=== PATIENT | female | born 1935 | race Caucasian/White ===

== ENCOUNTER 2024-05-17 15:13 | Emergency (ER) | payer MEDICARE, BC, SELFPAY ==
[2024-05-17 15:59] VITALS: BP 152/77; PULSE 67; RESP 19; TEMP 36.7; O2SAT 98; BMI 29.2
--- NOTE | 2024-05-17 16:19 | PD.EDUPEX ---
Upper Extremity Injury RME/HPI General Chief Complaint: Extremity Injury, Upper Stated Complaint: GLF, POSSIBLE FX RIGHT WRIST FX Time Seen by Provider: 05/17/24 15:31 Arrival date/time: 05/17/24 15:13 RME / HPI RME / HPI narrative: 88-year-old female patient was brought in by family for evaluation regarding right wrist pain. Patient sustained a ground-level fall landing on her right wrist, resulting to pain, went to PCP, outpatient x-ray was done and was advised to come to the emergency room for possible fracture of the right wrist. Patient denies any head injury. Denies any other complaints patient is ambulatory. Incident happened earlier today. Related Data Home Medications ?Medication ?Instructions ?Recorded ?Confirmed B-complex with vitamin C 1 tab PO QDAY 05/10/20 05/10/20 atorvastatin 10 mg tablet 10 mg PO QDAY 05/10/20 05/10/20 cranberry extract 650 mg capsule 650 mg PO QDAY 05/10/20 05/10/20 diltiazem HCl 240 mg 240 mg PO QAM 05/10/20 05/10/20 capsule,extended release 24 hr (Cartia XT) ezetimibe 10 mg tablet 10 mg PO QDAY 05/10/20 05/10/20 levothyroxine 100 mcg capsule 100 mcg PO QDAY 05/10/20 05/10/20 propafenone 225 mg 225 mg PO Q12H 05/10/20 05/10/20 capsule,extended release 12 hr vitamin B comp no.3-folic acid 1 1 tab PO QDAY 05/10/20 05/10/20 mg-vit C 60 mg-biotin 300 mcg tablet ([facility]) Previous Rx's ?Medication ?Instructions ?Recorded levofloxacin 750 mg tablet 750 mg PO QDAY #7 tabs 05/10/20 Allergies Allergy/AdvReac Type Severity Reaction Status Date / Time No Known Allergies Allergy Verified 12/15/19 13:15 Review of Systems Review of Systems Narrative Review of Systems: Review of system reviewed and within normal limits except mentioned in HPI ED Exam Narrative Physical exam: VITAL SIGNS: Reviewed. GENERAL APPEARANCE: Alert and interactive, follows commands, no acute distress, HEAD AND FACE: Non-traumatic. ENT: PERRL, pink conjunctivitis, eyelid no trauma, Mucous membrane moist. NECK: Supple, nontender, no nuchal rigidity. RECTAL: Deferred. GENITAL: Deferred. NEUROLOGICAL: Gross motor function intact sensory function intact, Appropriate for age. MUSCULOSKELETAL: low back nontender, full range of motion. EXTREMITIES: Right wrist tenderness, mild swelling no deformity, full range of motion. Negative tenderness to the snuffbox area SKIN: Color pink, dry, no rash, no lacerations, no abrasions, no contusions. LYMPHATICS: Deferred. Course Quality Measures none Orders Category Date Time Status splint [Splint / Immobilizer] STAT Care 05/17/24 16:18 Active Vital Signs Vital signs: Vital Signs Temperature 98.1 F 05/17/24 15:59 Pulse Rate 67 05/17/24 15:59 Respiratory Rate 19 05/17/24 15:59 Blood Pressure 152/77 H 05/17/24 15:59 Pulse Oximetry (%) 98 05/17/24 15:59 Oxygen Delivery Method Room Air 05/17/24 15:59 Extremity Injury MDM Narrative MDM Narrative:: X-ray of the wrist was reviewed by me and I did not notice any fracture or dislocation noted. Patient was placed on the cock up . distal neurovascular status intact post splinting. Patient data External records reviewed:: None Clinical information provided by:: none Social determinants that could affect healthcare access:: none Patient has the following chronic illnesses:: None How is presenting disease/condition affected by chronic disease/condition?: exacerbated by Evaluation data The following diagnostics were reviewed and interpreted by me:: radiology exam(s) Lab and/or radiology exams considered but not ordered:: None Interpretation Summary: X-ray of the wrist came back unremarkable. No fracture dislocation as read by radiologist Medications / Prescriptions Medications or Prescriptions considered but not ordered:: None Medication administrations:: None Consultations Consultation(s) initiated? (list below): No Diagnosis Upper Extremity Injury Differential Diagnosis: fracture of wrist, Colles' fracture and other (wrist sprain) Most likely diagnosis given after review of the tests above:: Wrist sprain, fall Admission Indicated Admission indicated?: not indicated Explain why admission is indicated or not indicated:: Stable for discharge Admission Request Was there a request for admission?: No Disposition Plan Disposition Plan: Discharge Discharge Attestation Discharge Attestation: The patient was given an opportunity to ask questions and understood the discharge instructions. Discharge instructions specifically effects, indications for sooner follow up or return to the emergency department, and the expected course of current diagnosis. Patient condition: Stable Discharge Plan Plan Patient Disposition: HOME (Self Care) Disposition Comment: stable Prescriptions/Referrals Prescriptions/Med Rec: No Action atorvastatin 10 mg Tablet 10 mg PO QDAY diltiazem HCl [Cartia XT] 240 mg Capsule,Extended Release 24hr 240 mg PO QAM B-complex with vitamin C [Nephro-Deandre] Tablet 1 tab PO QDAY ezetimibe 10 mg Tablet 10 mg PO QDAY propafenone 225 mg Capsule,Extended Release 12 Hr 225 mg PO Q12H [facility] Rx 1-60-300 mg-mg-mcg Tablet 1 tab PO QDAY levothyroxine 100 mcg Capsule 100 mcg PO QDAY cranberry extract 650 mg Capsule 650 mg PO QDAY levofloxacin 750 mg tablet 750 mg PO QDAY Qty: 7 0RF Problem List Clinical Impression: Sprain and strain of wrist, Fall Patient/Caregiver Discharge Instructions Discharge Activity: activity as tolerated Education Materials: Preventing Falls: Staying Active Additional Instructions: Thank you for the opportunity for serving you today. You are stable for discharged . You are advised to: Follow-up with Dr. Rodriguez in 1 to 2 days Return to ED for worsening of symptoms Increase oral fluids Take your pain medication as needed Wear your splint for the next 4 weeks or until seen by Dr. Rodriguez Print Language: Luxembourger Stand Alone Forms: Lissette Award Info., Patient Portal Info Letter PA/ARI Supervising Physician CRUZ/ARI Supervising Physician: MD Madelaine
--- NOTE | 2024-05-17 19:04 | PC.NURSE ---
no answer at er lobby or outside er to be discharge.
== END 2024-05-17 19:05 | disposition home or self-care (01) ==
PROVIDERS: Emergency Provider Emergency Medicine; PCP Internal Medicine
DX: S63.501A Unspecified sprain of right wrist, initial encounter (principal); S66.911A Strain of unspecified muscle, fascia and tendon at wrist and hand level, right hand, initial encounter; W18.30XA Fall on same level, unspecified, initial encounter
CPT/HCPCS: 73110; 99283

== ENCOUNTER → 2024-05-29 | Outpatient (CLI) | payer MEDICARE, BC, SELFPAY ==
--- NOTE | 2024-05-29 10:32 | XR_ITS ---
Examination: CT right wrist, without contrast. 2-D sagittal reconstructions. 2-D coronal reconstructions. 3-D reconstructions. Date and time of exam:May 29, 2024 1047 hours INDICATIONS: Patient fell last week with injury to the wrist, wrist pain CTDI: vol (mGy):4.60 DLP: (mGycm):96.9 Technique: Multiple 1.25 mm axial sections of the left wrist without intravenous contrast have been obtained. 2-D sagittal and coronal reconstructions have been obtained. 3-D reconstructions have been obtained. Low dose protocols were performed. One or more of the following dose reduction techniques were used; automated exposure control, adjustment of the mA and/or KV according to patient size, use of iterative reconstruction technique. Findings: Severe osteopenia Nondisplaced acute fractures distal radial metaphysis, axial image 33 Ulna intact Navicular lunate hamate remaining carpal bones intact No carpal metacarpal dislocation IMPRESSION: Acute nondisplaced fractures distal radial metaphysis
--- NOTE | 2024-05-29 10:32 | XR_ITS ---
Examination: CT right hand, without contrast. 2-D sagittal reconstructions. 2-D coronal reconstructions. 3-D reconstructions. Date and time of exam:May 29, 2024 1042 hours INDICATIONS: Patient fell last week with injury to the hand, hand pain CTDI: vol (mGy):4.50 DLP: (mGycm):115 Technique: Multiple 1.25 mm axial sections of the left hand have been obtained. 2-D sagittal and coronal reconstructions have been obtained. 3-D reconstructions have been obtained. Low dose protocols were performed. One or more of the following dose reduction techniques were used; automated exposure control, adjustment of the mA and/or KV according to patient size, use of iterative reconstruction technique. Findings: Nondisplaced acute fractures distal radial metaphysis, for instance axial image 110 Carpal bones intact No carpometacarpal dislocations Metacarpals and Severe osteopenia IMPRESSION: Acute nondisplaced fractures distal radial metaphysis Metacarpals and digits appear intact
== END | disposition home or self-care (01) ==
LOC: CCTX 10:27
PROVIDERS: PCP Internal Medicine; Referring Provider Orthopaedic Surgery; Visit Provider Orthopaedic Surgery
DX: S52.91XA Unspecified fracture of right forearm, initial encounter for closed fracture (principal); W19.XXXA Unspecified fall, initial encounter
CPT/HCPCS: 73200

== ENCOUNTER → 2024-06-15 | Outpatient (CLI) | payer MEDICARE, BC, SELFPAY ==
[2024-06-15 11:10] LABS: Collection Type, Urine Clean Catch
[2024-06-15 11:42] LABS: Basophils # (Auto) 0.1 Thou/mm3 (0.0-0.2); Basophils % (Auto) 1 % (0-2.5); Eosinophils # (Auto) 0.1 Thou/mm3 (0.0-0.5); Eosinophils % (Auto) 2 % (0-10); Hematocrit 36.2 % (36.0-46.0); Hemoglobin 11.9 g/dL (12.0-16.0); Immature Granulocytes % (Auto) 0 % (0-0); Immature Granulocytes Auto 0.01 Thou/mm3 (0.00-0.00); Lymphocytes # (Auto) 1.5 Thou/mm3 (1.0-4.8); Lymphocytes % (Auto) 30 % (10-50); Mean Corpuscular HGB Conc 32.9 g/dl (31.0-37.0); Mean Corpuscular Hemoglobin 32.3 pg (25.0-35.0); Mean Corpuscular Volume 98 fL (80-100); Monocytes # (Auto) 0.6 Thou/mm3 (0.0-0.8); Monocytes % (Auto) 12 % (0-12); Neutrophils # (Auto) 2.7 Thou/mm3 (1.8-7.7); Neutrophils % (Auto) 55 % (37-80); Nucleated Red Blood Cell % 0 /100 WBC (0); Platelet Count 168 Thou/mm3 (140-440); RDW Standard Deviation 51.2 fL (36.4-46.3); Red Blood Count 3.68 Miln/mm3 (4.00-5.20); White Blood Count 4.9 Thou/mm3 (3.6-11.0)
[2024-06-15 11:44] LABS: Bilirubin,Urine Negative (Negative); Blood,Urine Negative (Negative); Clarity,Urine Clear (Clear/Hazy); Color,Urine Lt-Yellow (Lt Yel-Yel); Glucose, Urine Negative (Negative); Ketones,Urine Negative (Negative); Leukocyte Esterase,Urine Positive (Negative); Nitrite,Urine Negative (Negative); Protein,Urine Negative (Neg - Trace); RBC,Urine 4 /hpf (0-3); Specific Gravity,Urine 1.017 (1.001-1.035); Squamous Epithelial Cell,Urine 1 /hpf (0-5); Urobilinogen,Urine Negative mg/dL (0.0-1.0); WBC,Urine 2 /hpf (0-5)
[2024-06-15 12:20] LABS: Alanine Aminotransferase 11 U/L (10-49); Albumin, Serum 4.3 gm/dL (3.4-4.8); Albumin/Globulin Ratio 1.9 (1.2-2.2); Alkaline Phosphatase 62 U/L (46-116); Anion Gap 7 (7-16); Aspartate Amino Transferase 19 U/L (0-34); BUN/Creatinine Ratio 22 Ratio (12-20); Bilirubin,Total 0.6 mg/dL (0.3-1.2); Blood Urea Nitrogen 22 mg/dL (9-23); Carbon Dioxide 27.8 mMol/L (20.0-31.0); Cardiac Risk Estimate 3.1 RATIO (3.7-5.6); Chloride 104 mMol/L (98-107); Cholesterol 182 mg/dL (132-200); Globulin 2.3 gm/dL (2.3-3.5); Glucose 96 mg/dL (74-106); HDL Cholesterol 59 mg/dL (40-60); LDL Cholesterol,Calculated 110 mg/dL (0-130); Osmolality,Calculated 280 (275-295); Potassium 4.4 mMol/L (3.4-5.1); Sodium 139 mMol/L (136-145); Thyroid Stimulating Hormone 1.76 uIU/mL (0.55-4.78); Total Protein 6.6 gm/dL (5.7-8.2); Triglycerides 64 mg/dL (30-150); eGFR 55 See Note
== END | disposition home or self-care (01) ==
LOC: COPL 10:04
PROVIDERS: PCP Internal Medicine; Referring Provider Internal Medicine; Visit Provider Internal Medicine
DX: I10 Essential (primary) hypertension (principal); E78.5 Hyperlipidemia, unspecified; E03.9 Hypothyroidism, unspecified
CPT/HCPCS: 36415; 80053; 80061; 81001; 84443; 85025

== ENCOUNTER → 2024-07-12 | Outpatient (CLI) | payer MEDICARE, BC, SELFPAY ==
[2024-07-12 10:48] LABS: OBS Card Expiration Date 2026-09; OBS Card Lot # 23001; OBS Performed By LAB; OBS QC OK? Yes
[2024-07-12 13:37] LABS: Occult Blood, Stool Negative (Negative); Occult Blood, Stool #2 Negative (Negative); Occult Blood, Stool #3 Negative (Negative)
[2024-07-12 13:38] LABS: OBS Developer Lot # 23003
== END | disposition home or self-care (01) ==
LOC: COPL 10:40
PROVIDERS: PCP Internal Medicine; Referring Provider Internal Medicine; Visit Provider Internal Medicine
DX: Z12.11 Encounter for screening for malignant neoplasm of colon (principal)
CPT/HCPCS: 82270

== ENCOUNTER → 2024-07-20 | Outpatient (CLI) | payer MEDICARE, BC, SELFPAY ==
--- NOTE | 2024-07-20 12:20 | XR_ITS ---
Examination: Bone densitometry Date and time of exam:July 20, 2024 1228 hours INDICATIONS: Hysterectomy age 44, postmenopausal right hip fracture 2014 wrist fracture May 2024 levothyroxine 42 years Technique: Lumbar spine and hip total bone mineralization values of an calculated. Peak reference and age match control results have been displayed. Findings: Lumbar spine total bone mineralization is1.155 gm/cm2. This is 1.0 standard deviations above peak reference. This is 3.9 standard deviations above age-matched controls. Hip total bone mineralization is 0.817 gm/cm2 This is 1.0 standard deviations below peak reference. This is 1.3 standard deviations above age-matched controls Impression: There is normal mineralization based on lumbar spine measurements. There is osteopenia based on hip measurements Lumbar mineralization is increase 0.8% compared with October 13, 2021 Hip mineralization is decreased 2.7% compared with October 13, 2021
== END | disposition home or self-care (01) ==
PROVIDERS: PCP Internal Medicine; Referring Provider Internal Medicine; Visit Provider Internal Medicine
DX: M85.89 Other specified disorders of bone density and structure, multiple sites (principal)
CPT/HCPCS: 77080

== ENCOUNTER → 2024-08-06 | Outpatient (CLI) | payer MEDICARE, BC, SELFPAY ==
--- NOTE | 2024-08-06 10:16 | XR_ITS ---
Examination: Shoulder,right, 4 views Technique: Shoulder AP internal rotation, AP external rotation, Y view shoulder, axial 4 views Exam date and time :Every 2024 1023 hours INDICATIONS: Patient fell June 01, 2024 with injury to the shoulder, shoulder pain. FINDINGS: Severe osteopenia No shoulder fracture or dislocation Advanced osteoarthritis and narrowing glenohumeral joint IMPRESSION: Advanced osteoarthritis and narrowing glenohumeral joint
== END | disposition home or self-care (01) ==
LOC: CDIM 09:53
PROVIDERS: PCP Internal Medicine; Referring Provider Orthopaedic Surgery; Visit Provider Orthopaedic Surgery
DX: M19.011 Primary osteoarthritis, right shoulder (principal); M25.811 Other specified joint disorders, right shoulder
CPT/HCPCS: 73030

== ENCOUNTER → 2024-11-02 | Outpatient (CLI) | payer MEDICARE, BC, SELFPAY ==
[2024-11-02 11:42] LABS: Basophils # (Auto) 0.1 Thou/mm3 (0.0-0.2); Basophils % (Auto) 1 % (0-2.5); Eosinophils # (Auto) 0.1 Thou/mm3 (0.0-0.5); Eosinophils % (Auto) 3 % (0-10); Hemoglobin 12.3 g/dL (12.0-16.0); Immature Granulocytes % (Auto) 0 % (0-0); Immature Granulocytes Auto 0.01 Thou/mm3 (0.00-0.00); Lymphocytes # (Auto) 1.6 Thou/mm3 (1.0-4.8); Lymphocytes % (Auto) 28 % (10-50); Mean Corpuscular HGB Conc 33.2 g/dl (31.0-37.0); Mean Corpuscular Hemoglobin 32.2 pg (25.0-35.0); Mean Corpuscular Volume 97 fL (80-100); Monocytes # (Auto) 0.7 Thou/mm3 (0.0-0.8); Monocytes % (Auto) 12 % (0-12); Neutrophils # (Auto) 3.1 Thou/mm3 (1.8-7.7); Neutrophils % (Auto) 56 % (37-80); Nucleated Red Blood Cell % 0 /100 WBC (0); Platelet Count 179 Thou/mm3 (140-440); RDW Standard Deviation 50.7 fL (36.4-46.3); Red Blood Count 3.82 Miln/mm3 (4.00-5.20); White Blood Count 5.6 Thou/mm3 (3.6-11.0)
[2024-11-02 11:49] LABS: Parathyroid Hormone Intact 49.3 pg/ml (18.5-88.0)
[2024-11-02 11:52] LABS: Albumin, Serum 4.2 gm/dL (3.4-4.8); Anion Gap 9 (7-16); BUN/Creatinine Ratio 25 Ratio (12-20); Blood Urea Nitrogen 27 mg/dL (9-23); Calcium 8.9 mg/dL (8.3-10.6); Calcium (Corrected) 8.9 mg/dL (8.5-10.1); Carbon Dioxide 29.8 mMol/L (20.0-31.0); Chloride 106 mMol/L (98-107); Creatinine (Component) 1.1 mg/dL (0.6-1.3); Glucose 104 mg/dL (74-106); Osmolality,Calculated 293 (275-295); Phosphorous 3.7 mg/dL (2.4-5.1); Potassium 4.3 mMol/L (3.4-5.1); Sodium 145 mMol/L (136-145); Thyroid Stimulating Hormone 1.48 uIU/mL (0.55-4.78); eGFR 49 See Note
== END | disposition home or self-care (01) ==
LOC: COPL 10:42
PROVIDERS: PCP Internal Medicine; Referring Provider Internal Medicine; Visit Provider Internal Medicine
DX: I12.9 Hypertensive chronic kidney disease with stage 1 through stage 4 chronic kidney disease, or unspecified chronic kidney disease (principal); N18.30 Chronic kidney disease, stage 3 unspecified; E03.9 Hypothyroidism, unspecified
CPT/HCPCS: 36415; 80069; 83970; 84443; 85025

== ENCOUNTER → 2024-12-13 | Outpatient (CLI) | payer MEDICARE, BC, SELFPAY ==
[2024-12-13 15:25] LABS: Collection Type, Urine Clean Catch
[2024-12-13 16:39] LABS: Bacteria,Urine Rare; Bilirubin,Urine Negative (Negative); Blood,Urine Negative (Negative); Clarity,Urine Clear (Clear/Hazy); Color,Urine Yellow (Lt Yel-Yel); Culture Indicated,Urine Not Indicated; Glucose, Urine Negative (Negative); Hyaline Casts,Urine 1 /hpf (0-1); Ketones,Urine Negative (Negative); Leukocyte Esterase,Urine Positive (Negative); Nitrite,Urine Negative (Negative); PH,Urine 5.5 (5.0-7.0); Protein,Urine Negative (Neg - Trace); RBC,Urine 5 /hpf (0-3); Specific Gravity,Urine 1.027 (1.001-1.035); Squamous Epithelial Cell,Urine 2 /hpf (0-5); Urobilinogen,Urine Negative mg/dL (0.0-1.0); WBC,Urine 3 /hpf (0-5)
== END | disposition home or self-care (01) ==
PROVIDERS: PCP Internal Medicine; Referring Provider Internal Medicine; Visit Provider Internal Medicine
DX: N39.0 Urinary tract infection, site not specified (principal)
CPT/HCPCS: 81001

== ENCOUNTER → 2025-01-24 | Outpatient (CLI) | payer MEDICARE, BC, SELFPAY ==
--- NOTE | 2025-01-24 13:46 | XR_ITS ---
Examination: Duplex scan of the lower extremity, unilateral left complete Date and time of exam: January 24, 2025 1422 hours INDICATIONS: Left leg swelling beginning 2 weeks ago post dog bite Technique: Duplex scan of the extremity veins using B-mode/grayscale imaging and Doppler spectral analysis and color flow Attention is directed to internal echogenicity, compression and augmentation involving these veins, color flow assessment, spectral analysis Findings: Major deep venous structures in the extremity demonstrate normal course and caliber. There is no evidence of deep vein thrombosis. Normal color flow and spectral analysis Impression: Negative for DVT..
== END | disposition home or self-care (01) ==
LOC: CDIM 12:22
PROVIDERS: PCP Internal Medicine; Referring Provider Internal Medicine; Visit Provider Internal Medicine
DX: R60.0 Localized edema (principal)
CPT/HCPCS: 93971

== ENCOUNTER → 2025-04-15 | Outpatient (CLI) | payer MEDICARE, BC, SELFPAY ==
[2025-04-15 11:52] LABS: Collection Type, Urine Clean Catch
[2025-04-15 13:31] LABS: Bilirubin,Urine Negative (Negative); Blood,Urine Negative (Negative); Clarity,Urine Clear (Clear/Hazy); Color,Urine Yellow (Lt Yel-Yel); Culture Indicated,Urine Not Indicated; Glucose, Urine Negative (Negative); Hyaline Casts,Urine < 1 /hpf (0-1); Ketones,Urine Negative (Negative); Leukocyte Esterase,Urine Negative (Negative); Nitrite,Urine Negative (Negative); PH,Urine 6.0 (5.0-7.0); Protein,Urine Negative (Neg - Trace); RBC,Urine 2 /hpf (0-3); Specific Gravity,Urine 1.015 (1.001-1.035); Squamous Epithelial Cell,Urine 1 /hpf (0-5); Urobilinogen,Urine Negative mg/dL (0.0-1.0); WBC,Urine 1 /hpf (0-5)
== END | disposition home or self-care (01) ==
LOC: COPL 11:42 → SLDO 11:42
PROVIDERS: PCP Internal Medicine; Referring Provider Internal Medicine; Visit Provider Internal Medicine
DX: N39.0 Urinary tract infection, site not specified (principal)
CPT/HCPCS: 81001

== ENCOUNTER → 2025-05-17 | Outpatient (CLI) | payer MEDICARE, BC, SELFPAY ==
[2025-05-17 11:56] LABS: Basophils # (Auto) 0.1 Thou/mm3 (0.0-0.2); Basophils % (Auto) 1 % (0-2.5); Eosinophils # (Auto) 0.1 Thou/mm3 (0.0-0.5); Eosinophils % (Auto) 2 % (0-10); Hematocrit 37.8 % (36.0-46.0); Hemoglobin 12.4 g/dL (12.0-16.0); Immature Granulocytes Auto 0.01 Thou/mm3 (0.00-0.00); Lymphocytes # (Auto) 1.3 Thou/mm3 (1.0-4.8); Lymphocytes % (Auto) 25 % (10-50); Mean Corpuscular HGB Conc 32.8 g/dl (31.0-37.0); Mean Corpuscular Hemoglobin 31.7 pg (25.0-35.0); Mean Corpuscular Volume 97 fL (80-100); Monocytes # (Auto) 0.5 Thou/mm3 (0.0-0.8); Monocytes % (Auto) 10 % (0-12); Neutrophils # (Auto) 3.1 Thou/mm3 (1.8-7.7); Neutrophils % (Auto) 61 % (37-80); Nucleated Red Blood Cell # 0.00 Thou/mm3 (0.00-0.00); Nucleated Red Blood Cell % 0 /100 WBC (0); Platelet Count 167 Thou/mm3 (140-440); RDW Standard Deviation 50.5 fL (36.4-46.3); Red Blood Count 3.91 Miln/mm3 (4.00-5.20); White Blood Count 5.1 Thou/mm3 (3.6-11.0)
[2025-05-17 12:02] LABS: Parathyroid Hormone Intact 31.3 pg/ml (18.5-88.0)
[2025-05-17 12:28] LABS: Alanine Aminotransferase 16 U/L (10-49); Albumin, Serum 4.6 gm/dL (3.4-4.8); Alkaline Phosphatase 58 U/L (46-116); Anion Gap 10 (7-16); Aspartate Amino Transferase 27 U/L (0-34); BUN/Creatinine Ratio 13 Ratio (12-20); Bilirubin,Direct 0.3 mg/dL (0.0-0.3); Bilirubin,Total 0.8 mg/dL (0.3-1.2); Blood Urea Nitrogen 14 mg/dL (9-23); Calcium 9.5 mg/dL (8.3-10.6); Carbon Dioxide 26.7 mMol/L (20.0-31.0); Cardiac Risk Estimate 3.1 RATIO (3.7-5.6); Chloride 106 mMol/L (98-107); Cholesterol 190 mg/dL (132-200); Creatinine (Component) 1.1 mg/dL (0.6-1.3); Glucose 96 mg/dL (74-106); HDL Cholesterol 62 mg/dL (40-60); LDL Cholesterol,Calculated 115 mg/dL (0-130); Osmolality,Calculated 285 (275-295); Phosphorous 4.0 mg/dL (2.4-5.1); Potassium 4.3 mMol/L (3.4-5.1); Sodium 143 mMol/L (136-145); Thyroid Stimulating Hormone 2.44 uIU/mL (0.55-4.78); Total Protein 6.8 gm/dL (5.7-8.2); Triglycerides 67 mg/dL (30-150); eGFR 49 See Note
[2025-05-17 13:54] LABS: Collection Type, Urine Clean Catch
[2025-05-17 14:18] LABS: Bilirubin,Urine Negative (Negative); Blood,Urine Negative (Negative); Clarity,Urine Clear (Clear/Hazy); Color,Urine Lt-Yellow (Lt Yel-Yel); Glucose, Urine Negative (Negative); Ketones,Urine Negative (Negative); Leukocyte Esterase,Urine Negative (Negative); Nitrite,Urine Negative (Negative); PH,Urine 6.5 (5.0-7.0); Protein,Urine Negative (Neg - Trace); RBC,Urine 3 /hpf (0-3); Specific Gravity,Urine 1.016 (1.001-1.035); Squamous Epithelial Cell,Urine < 1 /hpf (0-5); Urobilinogen,Urine Negative mg/dL (0.0-1.0); WBC,Urine 1 /hpf (0-5)
[2025-05-17 14:28] LABS: Creatinine MALB Rnd Ur 99 mg/dL (30-125); Microalbumin Creat Ratio 4 mg/gCrea (<30); Microalbumin, Random Urine 4 mg/L (0-300)
== END | disposition home or self-care (01) ==
LOC: COPL 09:48
PROVIDERS: PCP Internal Medicine; Referring Provider Internal Medicine; Visit Provider Internal Medicine
DX: I12.9 Hypertensive chronic kidney disease with stage 1 through stage 4 chronic kidney disease, or unspecified chronic kidney disease (principal); N18.30 Chronic kidney disease, stage 3 unspecified; E78.5 Hyperlipidemia, unspecified; E03.9 Hypothyroidism, unspecified
CPT/HCPCS: 36415; 80048; 80061; 80076; 81001; 82043; 82570; 83970; 84100; 84443; 85025